=== PATIENT | female | born 1960 | race Caucasian/White ===

== ENCOUNTER → 2017-05-22 | Outpatient (REF) | payer BC ==
[~2017-05-22] MED LIST: ASPI1TAB PO; ATOR1TAB19 PO; CALC600T57 PO; DULO1CAP3 PO; FISH5CAP PO; REST0.05 OU; VITA100067 PO
== END ==
LOC: M SFHCWAGY 14:16
PROVIDERS: ATTEND Nurse Practitioner Women's Health
DX: Z12.4 Encounter for screening for malignant neoplasm of cervix (principal); N95.2 Postmenopausal atrophic vaginitis

== ENCOUNTER → 2017-05-22 | Outpatient (CLI) | payer BC ==
--- NOTE | 2017-05-22 15:26 | REPMRS ---
Patient History The patient states she had a clinical breast exam in 05/2017. Patient is postmenopausal. Family history of breast cancer in maternal cousin at age 28. Digital Woman Screen Mammo: May 22, 2017 - Exam #: [id number] Bilateral CC and MLO view(s) were taken. Technologist: Martha Carlson, Technologist Prior study comparison: May 02, 2016, digital woman screen mammo performed at [facility]. March 26, 2015, digital woman screen mammo performed at [facility]. March 24, 2014, digital woman screen mammo performed at [facility]. FINDINGS: There are scattered fibroglandular densities. There has been no change in the appearance of the mammogram from the prior studies. There is a mild amount of scattered fibroglandular density which is fairly symmetric. There is no interval development of dominant mass, architectural distortion, or clustered microcalcification suggestive of malignancy. ASSESSMENT: BI-RADS/ACR category 1 mammogram. Negative. Recommendation Routine screening mammogram in 1 year (for women over age 40). This mammogram was interpreted with the aid of an FDA-approved computer-aided dectection system. Electronically Signed By: Lakhwinder Barger MD 05/22/17 [id number]
== END ==
LOC: M WHC 13:38
PROVIDERS: ATTEND Nurse Practitioner Women's Health
DX: Z12.31 Encounter for screening mammogram for malignant neoplasm of breast (principal)

== ENCOUNTER 2017-07-01 09:40 | Day surgery (SDC) | payer BC ==
[~2017-07-01] VITALS: Ht 156.2 cm; Wt 56.2 kg
[2017-07-01] MEDS ORDERED: NS 500 ML IV ONE (10:00)
[2017-07-01] MEDS ORDERED: LIDOCAINE 2% INJ 100 MG/5 ML SDV (FOR ANES.) As Ordered ONE (11:02)
[2017-07-01] MEDS ORDERED: PROPOFOL 200 MG/20 ML VIAL As Ordered ONE ×2 (11:02→11:21)
[2017-07-01] MEDS ORDERED: ePHEDrine SULFATE 25 MG/5 ML(5MG/ML) SYRINGE As Ordered ONE (11:26)
--- NOTE | 2017-07-01 11:42 | ROOR ---
Patient Name: Leda Cardoza Procedure Date: 07/01/2017 11:00 AM Date of : 1960 Age: 56 Room: [facility] Gender: Female Note Status: Finalized Procedure: Colonoscopy Indications: Screening for colorectal malignant neoplasm Providers: Anatoliy Mancera DO Referring MD: BRYANNA MAK DO Requesting Provider: Medicines: Propofol per Anesthesia Complications: No immediate complications. Procedure: Pre-Anesthesia Assessment: - Prior to the procedure, a History and Physical was performed, and patient medications and allergies were reviewed. The patient is competent. The risks and benefits of the procedure and the sedation options and risks were discussed with the patient. All questions were answered and informed consent was obtained. Patient identification and proposed procedure were verified by the physician, the nurse, the anesthesiologist and the environmental engineering technician in the endoscopy suite. Mental Status Examination: alert and oriented. Airway Examination: normal oropharyngeal airway and neck mobility. Respiratory Examination: clear to auscultation. CV Examination: normal. Prophylactic Antibiotics: The patient does not require prophylactic antibiotics. Prior Anticoagulants: The patient has taken no previous anticoagulant or antiplatelet agents. ASA Grade Assessment: II - A patient with mild systemic disease. After reviewing the risks and benefits, the patient was deemed in satisfactory condition to undergo the procedure. The anesthesia plan was to use monitored anesthesia care (MAC). Immediately prior to administration of medications, the patient was re-assessed for adequacy to receive sedatives. The heart rate, respiratory rate, oxygen saturations, blood pressure, adequacy of pulmonary ventilation, and response to care were monitored throughout the procedure. The physical status of the patient was re-assessed after the procedure. The Colonoscope was introduced through the anus and advanced to the cecum, identified by appendiceal orifice and ileocecal valve. The colonoscopy was performed without difficulty. The patient tolerated the procedure well. Findings: Multiple small-mouthed diverticula were found in the sigmoid colon. The exam was otherwise without abnormality on direct and retroflexion views. Impression: - Diverticulosis in the sigmoid colon. - The examination was otherwise normal on direct and retroflexion views. - No specimens collected. Recommendation: - Patient has a contact number available for emergencies. The signs and symptoms of potential delayed complications were discussed with the patient. Return to normal activities tomorrow. Written discharge instructions were provided to the patient. - Repeat colonoscopy in 5-10 years for screening purposes. Anatoliy Mancera DO 07/01/2017 11:42:23 AM This report has been signed electronically. Number of Addenda: 0 Note Initiated On: 07/01/2017 11:00 AM Estimated Blood Loss: Estimated blood loss: none.
[2017-07-01 12:00] VITALS: BP 111/61
== END 2017-07-01 12:00 | disposition home or self-care (01) ==
LOC: M OPP 09:40 → EDSTATUS 11:00 → M OPP 12:00
PROVIDERS: ATTEND Surgery
DX: Z12.11 Encounter for screening for malignant neoplasm of colon (principal); K57.30 Diverticulosis of large intestine without perforation or abscess without bleeding; F41.9 Anxiety disorder, unspecified; H91.90 Unspecified hearing loss, unspecified ear; M19.90 Unspecified osteoarthritis, unspecified site; Z79.82 Long term (current) use of aspirin; Z79.899 Other long term (current) drug therapy; Z88.1 Allergy status to other antibiotic agents

== ENCOUNTER → 2018-05-28 | Outpatient (REF) | payer BC | LOC: M SFHCWAGY 13:57 | DX: Z12.4 Encounter for screening for malignant neoplasm of cervix (principal) | CPT/HCPCS: G0123 ==

== ENCOUNTER → 2018-05-28 | Outpatient (CLI) | payer BC | LOC: M WHC 13:42 | DX: Z12.31 Encounter for screening mammogram for malignant neoplasm of breast (principal); Z80.3 Family history of malignant neoplasm of breast; N60.31 Fibrosclerosis of right breast; N60.32 Fibrosclerosis of left breast | CPT/HCPCS: 77067 ==